=== PATIENT | male | born 1990 | race Caucasian/White ===

== ENCOUNTER 2022-06-28 18:30 | Emergency (ER) | payer SELFPAY ==
[~2022-06-28] VITALS: Ht 175 cm; Wt 100.0 kg
[2022-06-28] MEDS ORDERED: NS IV 1000 ML 1,000 ML IV STA (19:26)
[2022-06-28] MEDS ORDERED: PANTOPRAZOLE 40 MG (PROTONIX) VIAL IV ONE (19:30)
[2022-06-28 19:34] LABS: BASOPHILS % (AUTO) 0 % (0-10); EOSINOPHILS % (AUTO) 0 % (0-10); HEMATOCRIT 41 % (40-54); HEMOGLOBIN 14.2 g/dL (13.3-17.7); LYMPHOCYTES # (AUTO) 1.2 10^3/uL (1.0-4.0); LYMPHOCYTES % (AUTO) 13 % (12-44); MEAN CORPUSCULAR HEMOGLOBIN 30 pg (25-34); MEAN CORPUSCULAR HGB CONC 35 g/dL (32-36); MEAN CORPUSCULAR VOLUME 87 fL (80-99); MEAN PLATELET VOLUME 9.9 fL (9.0-12.2); MONOCYTES # (AUTO) 0.3 10^3/uL (0.0-1.0); MONOCYTES % (AUTO) 4 % (0-12); NEUTROPHILS # (AUTO) 7.6 10^3/uL (1.8-7.8); NEUTROPHILS % (AUTO) 83 % (42-75); PLATELET COUNT 241 10^3/uL (130-400); WHITE BLOOD COUNT 9.2 10^3/uL (4.3-11.0)
[2022-06-28] MEDS ORDERED: NS 100 ML (IVPB) BAG IV ONE (19:45)
[2022-06-28] MEDS ORDERED: IOHEXOL 350 MG/ML 100 ML (OMNIPAQUE 350) VIAL IV ONE (19:45)
[2022-06-28] MEDS ORDERED: HOLD METFORMIN - RECEIVED CONTRAST 20 ML VIAL IV SCH (19:45)
--- NOTE | 2022-06-28 19:52 | ED Abdominal Pain ---
General Chief Complaint: Rect Problems Stated Complaint: NAUSEA, POSS GI BLEED, BLOODY STOOL Nursing Triage Note: PT STATES BLOOD IN STOOL 2 DAYS AGO, NORMAL BM THIS MORNING, BLOODY BM ABOUT 1530 TODAY, PT WENT TO [facility] TODAY AND WAS SENT HERE. PT STATES STRESS FROM NEW BABY AND NEW JOB, DENIES CONSTIPATION. URINARY SYMPTOMS ABOUT A WEEK AGO Source of Information: Patient Exam Limitations: No Limitations History of Present Illness Date Seen by Provider: Jun 28, 2022 Time Seen by Provider: 19:13 Initial Comments Here with report of bloody stool this afternoon. He had another 1 a couple days ago but then had normal bowel movements including this morning but then had some blood in his stool tonight. Was seen at [facility] and sent over here for complaint of right upper quadrant abdominal pain and need for further evaluation. Patient admits to increased stress as he just had a baby 3 weeks ago and he also recently started a new job. Does smoke 2 cigarettes a day. Does admit to acid reflux and burning. Denies vomiting but has had a little bit of intermittent nausea. Denies dysuria. Denies constitutional symptoms. He has not had anything like this before. Timing/Duration: 2-3 Days, Intermittent Severity/Quality: Moderate, Aching (On palpation earlier but resolved now) Location: RUQ Radiation: No Radiation Modifying Factors: Improves With Resting Associated Symptoms: No Back Pain, No Chest Pain, No Fever/Chills, No Shortness of Air, No Weakness Allergies and Home Medications Allergies Coded Allergies: No Known Drug Allergies (Unverified , 06/28/22) Patient Home Medication List Home Medication List Reviewed: Yes Review of Systems Review of Systems Constitutional: see HPI; No chills, No fever EENTM: No Nose Congestion, No Throat Pain Respiratory: No Symptoms Reported Cardiovascular: Denies Chest Pain, Denies Edema Gastrointestinal: Abdominal Pain, Nausea, Rectal Bleeding Genitourinary: No Symptoms Reported Musculoskeletal: no symptoms reported Skin: No change in color, No dryness Psychiatric/Neurological: No Symptoms Reported All Other Systems Reviewed Negative Unless Noted: Yes Past Qcobctw-Rqunul-Inyxkt Hx Patient Social History Tobacco Use?: Yes Tobacco type used: Cigarettes Smoking Status: Current Someday Smoker Substance use?: No Alcohol Use?: Yes Alcohol type: Beer Alcohol Frequency: Once in a while Immunizations Up To Date First/Initial COVID19 Vaccinat: NO Past Medical History Surgery/Hospitalization 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 oz. kg; 32.00 BMI Method: General Appearance: WD/WN, no apparent distress HEENT: PERRL/EOMI, pharynx normal Neck: full range of motion, supple Respiratory: lungs clear, normal breath sounds Cardiovascular: regular rate, rhythm, no murmur Gastrointestinal: non tender, soft Rectal: normal rectal tone, heme positive stool (Trace positive); No hemorrhoids, No mass, No tenderness Extremities: non-tender, normal inspection Back: normal inspection, no CVA tenderness, no vertebral tenderness Neurologic/Psychiatric: alert, oriented x 3 Skin: normal color, warm/dry Progress/Results/Core Measures Results/Orders Lab Results Laboratory Tests Test 06/28/22 19:27 Range/Units White Blood Count 9.2 4.3-11.0 10^3/uL Red Blood Count 4.73 4.30-5.52 10^6/uL Hemoglobin 14.2 13.3-17.7 g/dL Hematocrit 41 40-54 % Mean Corpuscular Volume 87 80-99 fL Mean Corpuscular Hemoglobin 30 25-34 pg Mean Corpuscular Hemoglobin Concent 35 32-36 g/dL Red Cell Distribution Width 11.8 10.0-14.5 % Platelet Count 241 130-400 10^3/uL Mean Platelet Volume 9.9 9.0-12.2 fL Immature Granulocyte % (Auto) 0 % Neutrophils (%) (Auto) 83 H 42-75 % Lymphocytes (%) (Auto) 13 12-44 % Monocytes (%) (Auto) 4 0-12 % Eosinophils (%) (Auto) 0 0-10 % Basophils (%) (Auto) 0 0-10 % Neutrophils # (Auto) 7.6 1.8-7.8 10^3/uL Lymphocytes # (Auto) 1.2 1.0-4.0 10^3/uL Monocytes # (Auto) 0.3 0.0-1.0 10^3/uL Eosinophils # (Auto) 0.0 0.0-0.3 10^3/uL Basophils # (Auto) 0.0 0.0-0.1 10^3/uL Immature Granulocyte # (Auto) 0.0 0.0-0.1 10^3/uL Sodium Level 137 135-145 MMOL/L Potassium Level 3.9 3.6-5.0 MMOL/L Chloride Level 105 98-107 MMOL/L Carbon Dioxide Level 21 21-32 MMOL/L Anion Gap 11 5-14 MMOL/L Blood Urea Nitrogen 21 H 7-18 MG/DL Creatinine 0.88 0.60-1.30 MG/DL Estimat Glomerular Filtration Rate 116 BUN/Creatinine Ratio 24 Glucose Level 106 H 70-105 MG/DL Calcium Level 9.1 8.5-10.1 MG/DL Corrected Calcium 8.9 8.5-10.1 MG/DL Total Bilirubin 0.8 0.1-1.0 MG/DL Aspartate Amino Transf (AST/SGOT) 22 5-34 U/L Alanine Aminotransferase (ALT/SGPT) 22 0-55 U/L Alkaline Phosphatase 48 40-136 U/L C-Reactive Protein High Sensitivity 0.39 0.00-0.50 MG/DL Total Protein 7.5 6.4-8.2 GM/DL Albumin 4.2 3.2-4.5 GM/DL My Orders Orders - BOSSMAN HUERTA MD Cbc With Automated Diff (06/28/22:) Comprehensive Metabolic Panel (06/28/22:) Hs C Reactive Protein (06/28/22:) Ct Abdomen/Pelvis W (06/28/22:26) Ed Iv/Invasive Line Start (06/28/22:26) Ns Iv 1000 Ml (Sodium Chloride 0.9%) (06/28/22 19:26) Pantoprazole Injection (Protonix Injecti (06/28/22 19:30) Iohexol Injection (Omnipaque 350 Mg/Ml 1 (06/28/22 19:45) Received Contrast (Hold Metformin- Contr (06/28/22 19:45) Ns (Ivpb) (Sodium Chloride 0.9% Ivpb Bag (06/28/22 19:45) Sucralfate Tablet (Carafate Tablet) (06/28/22 20:30) Medications Given in ED Current Medications Medications Dose Ordered Sig/Ovidio Route Start Time Stop Time Status Last Admin Dose Admin Iohexol 100 ml ONCE ONCE IV 06/28/22 19:45 06/28/22 19:46 DC 06/28/22 19:40 80 ML Pantoprazole 40 mg ONCE ONCE IV 06/28/22 19:30 06/28/22 19:31 DC 06/28/22 19:33 40 MG Sodium Chloride 100 ml ONCE ONCE IV 06/28/22 19:45 06/28/22 19:46 DC 06/28/22 19:40 80 ML Vital Signs/I&O 06/28/22 18:39 Temp 37.4 Pulse 82 Resp 18 B/P (MAP) 123/87 (99) Pulse Ox 98 O2 Delivery Room Air Blood Pressure Mean: 99 Fecal Occult: Positive Progress Progress Note : Progress Note Seen and evaluated. IV, labs, rectal exam, normal saline 1 L bolus, Hemoccult stool and Protonix 40 mg IV ordered. Monitor patient. 2021: Carafate 1 g p.o. Overall feeling much better. CT is negative and labs are reassuring. He does need follow-up for upper and lower endoscopy if indicated after discussion with the surgeon. We will go ahead and initiate outpatient therapy for possible ulcers and prescribed Carafate for at least 2 weeks. I will give him the phone number for Dr. Morgan to call. Discharged home with return precautions. Patient verbalized understanding instructions and agreement with plan. Diagnostic Imaging Diagonstic Imaging: CT Plain Films/CT/US/NM/MRI: abdomen, pelvis Comments [facility], [place] NAME: DENVER ARRIAGA [facility] REC#: [id number] PT STATUS: REG ER : 1990 PHYSICIAN: BOSSMAN HUERTA MD ADMIT DATE: 06/28/22/ER Draft Date of Exam:06/28/22 CT ABDOMEN/PELVIS W EXAMINATION: CT abdomen and pelvis with intravenous contrast. TECHNIQUE: Multiple contiguous axial images were obtained through the abdomen and pelvis after the uneventful administration of intravenous contrast. All CT scans use one or more of the following dose optimizing techniques: automated exposure control, MA and/or KvP adjustment based on patient size and exam type or iterative reconstruction. HISTORY: Abdominal pain. Rectal bleeding. COMPARISON: None available. FINDINGS: The heart is unremarkable. The included lung bases are clear. The liver, spleen, pancreas, adrenal glands, and kidneys have a normal appearance. There is no pathologically enlarged mesenteric or retroperitoneal adenopathy. The bowel loops are nondilated. The appendix is visualized in the right lower quadrant and has a normal appearance. There is no free fluid or free air. No acute osseous abnormalities. Ureters and bladder are grossly normal. There is no free air, loculated collection, or adenopathy in the pelvis. IMPRESSION: 1. No bowel obstruction. No free fluid or free air. Normal appendix. Dictated on workstation # [id number] Dict: 06/28/221949 Trans: 06/28/221952 [id number] Interpreted by: NEVAEH HEATH DO Electronically signed by: Departure Impression Primary Impression: Blood per rectum Additional Impression: Epigastric pain Disposition: HOME, SELF-CARE Condition: Improved Departure-Patient Inst. Decision time for Depature: 20:24 Referrals: [facility] [place] Primary Care Physician CATIA MORGAN DO Patient Instructions: Gastrointestinal Bleeding (DC), Acid Reflux and GERD in Adults (DC) Add. Discharge Instructions: All discharge instructions reviewed with patient and/or family. Voiced understanding. Take medications as directed. Clear a light diet for the next few days and then advance as tolerated. You may take [id number] omeprazole 20 mg 1 tablet daily and take that for at least the next 6 weeks. You may also take Pepcid/fam otidine 20 mg once or twice daily as needed for upset stomach. It is very important that you follow-up with the surgeon listed or of your choosing for recheck and further evaluation to include possible upper and lower endoscopy (scope) to evaluate for bleeding or other problems to include cancer. Return for worse pain, fever, vomiting, weakness, breathing problems or other concerns as needed. Scripts Sucralfate (Sucralfate) 1 Gram Tablet 1 GM PO ACHS, #56 TAB 1 Refill Chew tablet to a slurry and then swallow Prov: BOSSMAN HUERTA MD 06/28/22 BOSSMAN HUERTA MD Jun 28, 2022 19:52
[2022-06-28 19:56] LABS: ALBUMIN 4.2 GM/DL (3.2-4.5); BILIRUBIN,TOTAL 0.8 MG/DL (0.1-1.0); CALCIUM 9.1 MG/DL (8.5-10.1); CREATININE SERUM 0.88 MG/DL (0.60-1.30); POTASSIUM 3.9 MMOL/L (3.6-5.0); TOTAL PROTEIN 7.5 GM/DL (6.4-8.2)
[2022-06-28] MEDS ORDERED: SUCR1TAB PO (20:26)
[2022-06-28] MEDS ORDERED: SUCRALFATE 1 GM (CARAFATE) TAB PO ONE (20:30)
[2022-06-28 20:37] VITALS: BP 127/85
== END 2022-06-28 20:38 | disposition home or self-care (01) ==
LOC: EDUNIT# 18:30 → ER 18:33
DX: K62.5 Hemorrhage of anus and rectum (principal); R10.13 Epigastric pain; F17.210 Nicotine dependence, cigarettes, uncomplicated; Z28.310 Unvaccinated for COVID-19
CPT/HCPCS: 36415; 74177; 80053; 82274; 85025; 86141